=== PATIENT | female | born 2000 | race Caucasian/White ===

== ENCOUNTER 2020-02-09 23:16 | Emergency (ER) | payer OTHER ==
[2020-02-09 23:26] VITALS: BP 123/83; PULSE 83; RESP 20; TEMP 98.8
[2020-02-09] MEDS ORDERED: predniSONE 50 MG TAB PO STA (23:47)
[2020-02-09] MEDS ORDERED: FAMOTIDINE 20 MG TAB PO STA (23:47)
[2020-02-09] MEDS ORDERED: diphenhydrAMINE 50 MG CAP PO STA (23:48)
--- NOTE | 2020-02-09 23:50 | ED ---
Allergic Reaction HPI - General Chief complaint: Allergic Reaction Stated complaint: Rash Time Seen by Provider: 02/09/20 23:30 Source: patient Mode of arrival: ambulatory Limitations: no limitations - History of Present Illness Initial Comments: 19-year-old female patient presents to the emergency department today for evaluation of rash to her upper body and swelling around her eyes. Patient is also reporting postnasal drainage with mild sore throat. Denies any difficulty with breathing or wheezing. Denies lip or tongue swelling. Denies exposure to new substances. States she did have a similar reaction approximately one year ago she feels it may be a seasonal ALLERGY. She did have a tooth pulled today, states that she is not having difficulty with that area. Denies any facial swelling. Denies taking any medication for her symptoms. Patient denies any recent rash, fever, chills, cough, chest pain, abdominal pain, nausea, vomiting, diarrhea, constipation, back pain, numbness, tingling, dizziness, weakness, hematuria, dysuria, urinary urgency, urinary frequency, headache, visual changes, or any other complaints. - Related Data Previous Rx's Medication Instructions Recorded Famotidine [Pepcid] 20 mg PO DAILY #3 tablet 02/09/20 predniSONE 50 mg PO DAILY #3 tab 02/09/20 Allergies Allergy/AdvReac Type Severity Reaction Status Date / Time sulfamethoxazole Allergy Rash/Hives Verified 02/09/20 23:26 [From Bactrim] trimethoprim [From Bactrim] Allergy Rash/Hives Verified 02/09/20 23:26 Review of Systems ROS Statement: Those systems with pertinent positive or pertinent negative responses have been documented in the HPI. ROS Other: All systems not noted in ROS Statement are negative. Past Medical History Past Medical History: No Reported History History of Any Multi-Drug Resistant Organisms: None Reported Past Surgical History: Tonsillectomy Past Psychological History: Anxiety, Depression Smoking Status: Never smoker Past Alcohol Use History: None Reported Past Drug Use History: Marijuana General Exam Limitations: no limitations General appearance: alert, in no apparent distress, other (This is a well-d eveloped, well-nourished adult female patient in no acute distress. Vital signs upon presentation are temperature 98.8F, pulse 83, respirations 20, blood pressure 123/83, pulse ox 98% on room air.) Eye exam: Present: PERRL, EOMI, periorbital swelling (Mild periorbital swelling noted, no overlying erythema). Absent: normal appearance, scleral icterus, conjunctival injection ENT exam: Present: normal exam, normal oropharynx, mucous membranes moist, TM's normal bilaterally Respiratory exam: Present: normal lung sounds bilaterally. Absent: respiratory distress, wheezes, rales, rhonchi, stridor Cardiovascular Exam: Present: regular rate, normal rhythm, normal heart sounds. Absent: systolic murmur, diastolic murmur, rubs, gallop, clicks Neurological exam: Present: alert, oriented X3, CN II-XII intact Psychiatric exam: Present: normal affect, normal mood Skin exam: Present: warm, dry, intact, normal color, rash (Urticaria noted over the neck and arms.) Course Vital Signs 02/09/20 23:23 Temperature 98.8 F Pulse Rate 83 Respiratory 20 Rate Blood Pressure 123/83 O2 Sat by Pulse 98 Oximetry Medical Decision Making - Medical Decision Making 19-year-old female patient presented to the emergency department today for evaluation of rash and eye swelling. Physical examination did reveal mild david orbital edema with no overlying erythema. No conjunctival injection or eye drainage. There is mild urticarial rash noted over the posterior neck and the arms. This is consistent with ALLERGIC reaction. Patient will be treated with prednisone and Pepcid here. She is given Benadryl to take home as she is driving herself. She is instructed to continue Benadryl every 6 hours as needed. She is given prescription for prednisone and Pepcid. She is instructed to follow-up with her primary care physician for recheck in 1-2 days. She verbalizes understanding and agrees with this plan. Disposition Clinical Impression: Rash, Periorbital edema Disposition: HOME SELF-CARE Condition: Good Instructions (If sedation given, give patient instructions): General Allergic Reaction (ED) Additional Instructions: Take medications as directed. Take Benadryl every 6 hours as needed. Follow-up to primary care physician for recheck in 1-2 days. Prescriptions: Famotidine [Pepcid] 20 mg PO DAILY #3 tablet predniSONE 50 mg PO DAILY #3 tab Is patient prescribed a controlled substance at d/c from ED?: No Referrals: Maren Araujo MD [Primary Care Provider] - 1-2 days Time of Disposition: 23:50
== END 2020-02-10 00:30 | disposition home or self-care (01) ==
LOC: EC 23:16
DX: R21 Rash and other nonspecific skin eruption (principal); R60.0 Localized edema; L50.0 Allergic urticaria; Z88.1 Allergy status to other antibiotic agents; Z88.2 Allergy status to sulfonamides
CPT/HCPCS: 99283; J7512

== ENCOUNTER 2020-02-23 11:42 | Emergency (ER) | payer OTHER ==
[2020-02-23 11:47] VITALS: BP 121/81; PULSE 79; RESP 18; TEMP 98.1
--- NOTE | 2020-02-23 12:37 | ED ---
Female Urogenital HPI - General Chief complaint: Urogenital Stated complaint: Vaginal pain Time Seen by Provider: 02/23/20 11:48 Source: patient Mode of arrival: ambulatory Limitations: no limitations - History of Present Illness Initial comments: 19-year-old feel presented for chief complaint of vaginal pain she states that she has been at the external vagina at times it is sharp. Patient denies any dysuria urgency frequency. She was stated that she has had some thick discharge she was concerned of a yeast infection and presents emergency department for evaluation. Denies . States she is sexually active. Denies abdominal or back pain. Remaining ROS (-). Last Menstrual Period: 02/13/20 - Related Data Home Medications Medication Instructions Recorded Confirmed Amoxicillin 500 mg PO Q8H 02/23/20 02/23/20 Orsythia 1 tab PO DAILY 02/23/20 02/23/20 Previous Rx's Medication Instructions Recorded Fluconazole [Diflucan] 150 mg PO DAILY 3 Days #2 tab 02/23/20 Allergies Allergy/AdvReac Type Severity Reaction Status Date / Time nitrofurantoin Allergy Rash/Hives Verified 02/23/20 12:17 [From Macrobid] sulfamethoxazole Allergy Rash/Hives Verified 02/23/20 12:17 [From Bactrim] trimethoprim [From Bactrim] Allergy Rash/Hives Verified 02/23/20 12:17 Review of Systems ROS Statement: Those systems with pertinent positive or pertinent negative responses have been documented in the HPI. ROS Other: All systems not noted in ROS Statement are negative. Past Medical History Past Medical History: No Reported History History of Any Multi-Drug Resistant Organisms: None Reported Past Surgical History: Tonsillectomy Past Psychological History: Anxiety, Depression Smoking Status: Never smoker Past Alcohol Use History: None Reported Past Drug Use History: Marijuana General Exam - General Exam Comments Initial Comments: General: The patient is awake and alert, in no distress, and does not appear acutely ill. Eye: Pupils are equal, round and reactive to light, extra-ocular movements are intact. No nystagmus. There is normal conjunctiva bilaterally. No signs of icterus. Cardiovascular: There is a regular rate and rhythm. No murmur, rub or gallop is appreciated. Respiratory: Lungs are clear to auscultation, respirations are non-labored, breath sounds are equal. No wheezes, stridor, rales, or rhonchi. Gastrointestinal: Soft, non-distended, non-tender abdomen without masses or organomegaly noted. There is no rebound or guarding present. : no external lesions. some redness of cervix (discussed with patient) thick chunky white discharge no odor. no profuse discharge no adnexal or cervical motion tenderness Musculoskeletal: Normal ROM, no tenderness. Strength 5/5. Sensation intact. Pulses equal bilaterally 2+. Neurological: A&O x 3. CN II-XII intact grossly, There are no obvious motor or sensory deficits. Coordination appears grossly intact. Speech is normal. Skin: Skin is warm and dry and no rashes or lesions are noted. Psychiatric: Cooperative, appropriate mood & affect, normal judgment. Limitations: no limitations Course Vital Signs 02/23/20 02/23/20 11:43 13:34 Temperature 98.1 F 98.1 F Pulse Rate 79 79 Respiratory 18 18 Rate Blood Pressure 121/81 121/81 O2 Sat by Pulse 100 100 Oximetry Medical Decision Making - Medical Decision Making 19 yo female presenting today for cc of vaginal irritation/pain. Findings on exam concerning for gabriel infection. Patient afebrile. NO dysuria. Pending urine culture. Patient will be discharged on diflucan with PCP and OBGYN f/u. Discussed redness of cervix and recommended PAP smear. - Lab Data Lab Results 02/23/20 02/23/20 02/23/20 Range/Units 12:30 12:30 12:30 Urine Color Yellow Urine Appearance Clear (Clear) Urine pH 5.5 (5.0-8.0) Ur Specific [place] 1.022 (1.001-1.035) Urine Protein Negative (Negative) Urine Glucose (UA) Negative (Negative) Urine Ketones Negative (Negative) Urine Blood Negative (Negative) Urine Nitrite Negative (Negative) Urine Bilirubin Negative (Negative) Urine Urobilinogen <2.0 (<2.0) mg/dL Ur Leukocyte Esterase Moderate H (Negative) Urine RBC 1 (0-5) /hpf Urine WBC 3 (0-5) /hpf Ur Squamous Epith Cells 3 (0-4) /hpf Urine Bacteria Rare H (None) /hpf Hyaline Casts 3 H (0-2) /lpf Urine Mucus Many H (None) /hpf Urine HCG, Qual Not Detected (Not Detectd) Trichomonas Ag (Rapid) Negative (Negative) Disposition Clinical Impression: Vaginitis Disposition: HOME SELF-CARE Condition: Good Instructions (If sedation given, give patient instructions): Yeast Infection (ED) Additional Instructions: Please use medication as discussed. Please follow-up with OBGYN in next 1-2 weeks. Please return to emergency room if the symptoms increase or worsen or for any other concerns. Prescriptions: Fluconazole [Diflucan] 150 mg PO DAILY 3 Days #2 tab Is patient prescribed a controlled substance at d/c from ED?: No Referrals: Maren Araujo MD [Primary Care Provider] - 1-2 days Time of Disposition: 13:12
[2020-02-23 12:57] LABS: Appearance,Urine Clear (Clear); Bacteria,Urine Rare /hpf; Bilirubin,Urine Negative (Negative); Blood,Urine Negative (Negative); Color,Urine Yellow; Glucose,Urine (UA) Negative (Negative); Hyaline Casts,Urine 3 /lpf (0-2); Ketones,Urine Negative (Negative); Leukocyte Esterase,Urine Moderate (Negative); Mucus,Urine Many /hpf; Nitrite,Urine Negative (Negative); PH, Urine 5.5 (5.0-8.0); Protein,Urine Negative (Negative); RBC,Urine 1 /hpf (0-5); Specific Gravity,Urine 1.022 (1.001-1.035); Squamous Epithelial Cell,Urine 3 /hpf (0-4); Urobilinogen,Urine <2.0 mg/dL (<2.0); WBC,Urine 3 /hpf (0-5)
[2020-02-25 09:41] LABS: C. trachomatis,PCR Negative (Neg,Equiv); Chlamydia trachomatis Source Vagina; N. gonorrhoeae,PCR Negative (Neg,Equiv); Neisseria Source Vagina
== END 2020-02-23 13:35 | disposition home or self-care (01) ==
LOC: EC 11:42
DX: N76.0 Acute vaginitis (principal); Z88.2 Allergy status to sulfonamides; Z88.8 Allergy status to other drugs, medicaments and biological substances
CPT/HCPCS: 81001; 81025; 87070; 87491; 87591; 87808; 99283

== ENCOUNTER 2022-11-07 03:27 | Emergency (ER) | payer OTHER ==
[2022-11-07 03:35] VITALS: BP 122/73; PULSE 99; RESP 18; TEMP 98.1
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
== END 2022-11-07 04:02 | disposition home or self-care (01) ==
LOC: EC 03:27
DX: F10.129 Alcohol abuse with intoxication, unspecified (principal); F41.9 Anxiety disorder, unspecified; F32.A Depression, unspecified; F12.90 Cannabis use, unspecified, uncomplicated; F17.200 Nicotine dependence, unspecified, uncomplicated; Z79.899 Other long term (current) drug therapy; Z88.1 Allergy status to other antibiotic agents; Z88.2 Allergy status to sulfonamides; V89.2XXA Person injured in unspecified motor-vehicle accident, traffic, initial encounter
CPT/HCPCS: 99282

== ENCOUNTER 2022-11-24 23:02 | Inpatient (IN) | payer MEDICAID, OTHER ==
--- NOTE | 2022-11-25 01:11 | ED ---
General Adult HPI - General Chief complaint: Psychiatric Symptoms Stated complaint: Mental Health Time Seen by Provider: 11/24/22 23:05 Source: patient Mode of arrival: ambulatory Limitations: no limitations - History of Present Illness Initial comments: This is a 22-year-old female with a past medical history including anxiety and depression presents emergency department via police for suicidal ideation as well as "needing to talk to somebody." The patient was tearful on evaluation and was handcuffed as the patient was reportedly aggressive towards police. The patient stated that she wanted somebody to talk to for "help" but did not want "to be put on 3 W." The patient stated that when the police did arrive after she called her to obtain some sort of help at home, the patient became agitated and stated that she was suicidal now that the police were there. The patient stated multiple times however to myself that she did not have any thoughts of suicide and that she only stated it because the police were at the house and stressed out her grandmother. The patient denied any homicidal ideation as well as denying any auditory or visual hallucination. The patient was cooperative in the emergency department and was able to rest comfortably in bed. The patient denied any acute trauma or pain. - Related Data Home Medications Medication Instructions Recorded Confirmed Amoxicillin 500 mg PO Q8H 02/23/20 02/23/20 Orsythia 1 tab PO DAILY 02/23/20 02/23/20 Previous Rx's Medication Instructions Recorded Fluconazole [Diflucan] 150 mg PO DAILY 3 Days #2 tab 02/23/20 Allergies Allergy/AdvReac Type Severity Reaction Status Date / Time nitrofurantoin Allergy Rash/Hives Verified 11/24/22 23:17 [From Macrobid] sulfamethoxazole Allergy Rash/Hives Verified 11/24/22 23:17 [From Bactrim] trimethoprim [From Bactrim] Allergy Rash/Hives Verified 11/24/22 23:17 Review of Systems ROS Statement: Those systems with pertinent positive or pertinent negative responses have been documented in the HPI. ROS Other: All systems not noted in ROS Statement are negative. Past Medical History Past Medical History: No Reported History History of Any Multi-Drug Resistant Organisms: None Reported Past Surgical History: Tonsillectomy Past Psychological History: Anxiety, Depression Smoking Status: Current some day smoker Past Alcohol Use History: None Reported, Occasional Past Drug Use History: Marijuana General Exam Limitations: no limitations General appearance: alert, in no apparent distress Head exam: Present: atraumatic, normocephalic, normal inspection Eye exam: Present: normal appearance, PERRL Pupils: Present: normal accommodation ENT exam: Present: normal exam, normal oropharynx, mucous membranes moist Neck exam: Present: normal inspection, full ROM Respiratory exam: Present: normal lung sounds bilaterally Cardiovascular Exam: Present: regular rate, normal rhythm, normal heart sounds GI/Abdominal exam: Present: soft, normal bowel sounds Extremities exam: Present: normal inspection, full ROM Back exam: Present: normal inspection, full ROM Neurological exam: Present: alert, oriented X3, CN II-XII intact Psychiatric exam: Present: normal affect, normal mood, agitated (Intermittently agitated) Skin exam: Present: warm, dry Course Vital Signs 11/24/22 23:10 Temperature 98.6 F Pulse Rate 100 Respiratory 18 Rate Blood Pressure 143/93 O2 Sat by Pulse 99 Oximetry Medical Decision Making - Medical Decision Making Was pt. sent in by a medical professional or institution ([facility], DAY CARE HOME PROVIDER, urgent care, hospital, or correction...) When possible be specific @ -Yes, sent in via police Did you speak to anyone other than the patient for history (EMS, parent, family, police, friend...)? What history was obtained from this source @ -No Did you review nursing and triage notes (agree or disagree)? Why? @ -I reviewed and agree with nursing and triage notes Were old charts reviewed (outside hosp., previous admission, EMS record, old EKG, old radiological studies, urgent care reports/EKG's, correction records)? Report findings @ -No old charts were reviewed Differential Diagnosis (chest pain, altered mental status, abdominal pain women, abdominal pain men, vaginal bleeding, weakness, fever, dyspnea, syncope, headache, dizziness, GI bleed, back pain, seizure, CVA, palpatations, mental health)? @ -Acute psychosis, suicidal ideation, anxiety EKG interpreted by me (3pts min.). @ -None X-rays interpreted by me (1pt min.). @ -None done CT interpreted by me (1pt min.). @ -None done U/S interpreted by me (1pt. min.). @ -None done What testing was considered but not performed or refused? (CT, X-rays, U/S, labs)? Why? @ -None What meds were considered but not given or refused? Why? @ -None Did you discuss the management of the patient with other professionals (professionals i.e. , PA, DAY CARE HOME PROVIDER, lab, RT, psych nurse, social work lecturer, adjunct psychology instructor, teacher, corporate ethics officer, child support case officer)? Give summary @ -Yes, the patient was discussed with the EPS. Was smoking cessation discussed for >3mins.? @ -No Was critical care preformed (if so, how long)? @ -No Were there social determinants of health that impacted care today? How? (Homelessness, low income, unemployed, alcoholism, drug addiction, transportation, low edu. Level, literacy, decrease access to med. care, residential, rehab)? @ -No Was there de-escalation of care discussed even if they declined (Discuss DNR or withdrawal of care, Hospice)? DNR status @ -No What co-morbidities impacted this encounter? (DM, HTN, Smoking, COPD, CAD, Cancer, CVA, ARF, Chemo, Hep., AIDS, mental health diagnosis, sleep apnea, morbid obesity)? @ -Anxiety, depression Was patient admitted / discharged? Hospital course, mention meds given and route, prescriptions, significant lab abnormalities, going to OR and other pertinent info. @ -The patient was seen and evaluated emergency department. Physical exam, the patient was cooperative and answer questions appropriate. Vital signs were stable. The patient stated that she only stated that she was suicidal because the police showed up to her house after she was trying to attempt to get "help." The patient stated that she wanted help for "the bug that splinting in my brain." The patient however denied any suicidal thoughts as well as any homicidal ideation. The patient was petitioned by police and after the breath alcohol level was 0, the patient was medically cleared. The patient was seen and evaluated by EPS. EPS did recommend inpatient admission. I did fill out a clinical certificate for the patient and the patient was told this plan and was agreeable. The patient was admitted in stable condition. Undiagnosed new problem with uncertain prognosis? @ -No Drug Therapy requiring intensive monitoring for toxicity (Heparin, Nitro, Insulin, Cardizem)? @ -No Were any procedures done? @ -No Diagnosis/symptom? @ -Suicidal ideation, psychosis Acute, or Chronic, or Acute on Chronic? @ -Acute on chronic Uncomplicated (without systemic symptoms) or Complicated (systemic symptoms)? @ -Complicated Side effects of treatment? @ -No Exacerbation, Progression, or Severe Exacerbation? @ -No Poses a threat to life or bodily function? How? (Chest pain, USA, HI, pneumonia, PE, COPD, DKA, ARF, appy, cholecystitis, CVA, Diverticulitis, Homicidal, Suicidal, threat to staff... and all critical care pts) @ -Yes, suicidal ideation can lead to suicide plan and possible attempt leading to possible . Disposition Clinical Impression: Psychosis, Suicidal ideation Disposition: ADMITTED IP TO THIS [facility] Condition: Stable Referrals: Maren Araujo MD [Primary Care Provider] - 1-2 days Time of Disposition: 02:00 Decision to Admit Reason: Admit from EC Decision Date: 11/25/22 Decision Time: 02:00
[2022-11-25] MEDS ORDERED: hydrOXYzine HCL 50 MG/ML 1 ML VIAL IM PRN (03:03)
[2022-11-25] MEDS ORDERED: ACETAMINOPHEN TAB 325 MG TAB PO PRN (03:03)
[2022-11-25] MEDS ORDERED: IBUPROFEN 600 MG TAB PO PRN (03:03)
[2022-11-25] MEDS ORDERED: MAGNESIUM HYDROXIDE 2,400 MG/10 ML CUP PO PRN (03:03)
[2022-11-25] MEDS ORDERED: MAG HYDROX/AL HYDROX/SIMETH 30 ML CUP PO PRN (03:03)
[2022-11-25] MEDS ORDERED: OLANZapine 10 MG VIAL IM PRN (03:03)
[2022-11-25] MEDS ORDERED: OLANZapine 5 MG TAB PO PRN (03:10)
--- NOTE | 2022-11-25 05:20 | P.MDCNMH ---
History of Present Illness H&P Date: 11/25/22 Chief Complaint: medical eval 22 year old female with depression and anxiety patient is currently sleeping and medicated , unable to provide any medical history , which was obtained from reviewing medical records and speaking with [facility] staff Marlo patient was brought in to the hospital due to suicidal threats, she was home , when she started acting strange , and police was notified, and then she started voicing suicidal thoughts in front of the police , who brought her here for evaluation. she denied any hallucinations. or homicidal ideation. she was reportedly cooperative in the ED , but very tearful and depressed. no reported medical concerns at this time Past Medical History Past Medical History: No Reported History History of Any Multi-Drug Resistant Organisms: None Reported Past Surgical History: Tonsillectomy Past Psychological History: Anxiety, Depression Smoking Status: Current some day smoker Past Alcohol Use History: None Reported, Occasional Past Drug Use History: Marijuana Medications and Allergies Home Medications Medication Instructions Recorded Confirmed Type Amoxicillin 500 mg PO Q8H 02/23/20 02/23/20 History Fluconazole [Diflucan] 150 mg PO DAILY 3 Days #2 tab 02/23/20 Rx Orsythia 1 tab PO DAILY 02/23/20 02/23/20 History Allergies Allergy/AdvReac Type Severity Reaction Status Date / Time nitrofurantoin Allergy Rash/Hives Verified 11/24/22 23:17 [From Macrobid] sulfamethoxazole Allergy Rash/Hives Verified 11/24/22 23:17 [From Bactrim] trimethoprim [From Bactrim] Allergy Rash/Hives Verified 11/24/22 23:17 Physical Exam Vitals: Vital Signs Temp Pulse Pulse Resp BP BP Pulse Ox 11/25/22 03:40 98.0 F 92 18 127/73 99 11/24/22 23:10 98.6 F 100 18 143/93 99 Intake and Output 11/24/22 11/24/22 11/25/22 14:59 22:59 06:59 Other: Weight 43.9 kg patient is medicated and sleeping , and was not available for evaluation at this time Cranial Nerve Examination - Cranial Nerves Cranial Nerve I- Olfactory: Intact (CN exam not performed , but marked intact due to system error that the chart will not close if its not marked with intact or impaired) Cranial Nerve II- Optic: Intact Cranial Nerve III- Oculomotor: Intact Cranial Nerve IV- Trochlear: Intact Cranial Nerve V- Trigeminal: Intact Cranial Nerve - Abducens: Intact Cranial Nerve VII- Facial: Intact Cranial Nerve VIII- Auditory: Intact Cranial Nerve IX- Glossopharyngeal: Intact Cranial Nerve X- Vagus: Intact Cranial Nerve XI- Accessory: Intact Cranial Nerve XII- Hypoglossal: Intact Assessment and Plan Assessment: depression and suicidal ideation management per psych no reported medical concerns thank you for this consultation , please reach out to [facility] if any medical concerns labs not available for review at this time COVID test negative
[2022-11-25 05:48] LABS: Appearance,Urine Clear (Clear); Bilirubin,Urine Negative (Negative); Blood,Urine Negative (Negative); Color,Urine Light Yellow; Glucose,Urine (UA) Negative (Negative); Ketones,Urine Negative (Negative); Leukocyte Esterase,Urine Negative (Negative); Nitrite,Urine Negative (Negative); PH, Urine 6.5 (5.0-8.0); Protein,Urine Negative (Negative); Urobilinogen,Urine <2.0 mg/dL (<2.0)
[2022-11-25] MEDS ORDERED: NICOTINE 14MG/24HR PATCH TRANSDERM SCH (09:00)
[2022-11-25] MEDS ORDERED: SERTRALINE 50 MG TAB PO STA (11:11)
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
[2022-11-25 15:30] VITALS: BMI 18.8
[2022-11-25 18:38] LABS: Urine Alcohol Negative (Negative); Urine Barbiturate Negative (Negative); Urine Cocaine Negative (Negative); Urine Methadone Negative (Negative); Urine Opiates Negative (Negative); Urine Phencyclidine Negative (Negative)
[2022-11-25] MEDS: hydrOXYzine pamoate 25 MG CAP PO PRN (21:00)
[2022-11-26 06:47] VITALS: BP 129/95; PULSE 111; RESP 14; TEMP 97.2
[2022-11-26 06:54] LABS: Basophils % (A) 1 %; Eosinophils # (A) 0.1 k/uL (0-0.7); Eosinophils % (A) 1 %; HGB 13.5 gm/dL (11.4-16.0); Lymphocytes # (A) 3.2 k/uL (1.0-4.8); Lymphocytes % (A) 44 %; MCH 28.9 pg (25.0-35.0); MCHC 32.1 g/dL (31.0-37.0); Mean Platelet Volume 7.4; Monocytes # (A) 0.5 k/uL (0-1.0); Monocytes % (A) 7 %; Neutrophils # (A) 3.3 k/uL (1.3-7.7); Neutrophils % (A) 45 %; Platelet Count 267 k/uL (150-450); RBC 4.66 m/uL (3.80-5.40); RDW 12.7 % (11.5-15.5); WBC 7.3 k/uL (3.8-10.6)
[2022-11-26 07:03] LABS: ALT 17 U/L (4-34); AST 25 U/L (14-36); African American GFR (CKD) >90 (>60 ml/min/1.73 sqM); Albumin 4.7 g/dL (3.5-5.0); Alkaline Phosphatase 67 U/L (38-126); Anion Gap 9 mmol/L; Bilirubin,Unconjugated 0.5 mg/dL (0.0-1.1); Blood Urea Nitrogen 9 mg/dL (7-17); Calcium 9.7 mg/dL (8.4-10.2); Carbon Dioxide 27 mmol/L (22-30); Chloride 103 mmol/L (98-107); Glucose 93 mg/dL (74-99); Non-African American GFR(CKD) >90 (>60 ml/min/1.73 sqM); Potassium 3.9 mmol/L (3.5-5.1); Sodium 139 mmol/L (137-145); Total Bilirubin 0.5 mg/dL (0.2-1.3); Total Protein 7.4 g/dL (6.3-8.2)
[2022-11-26] MEDS ORDERED: SERTRALINE 50 MG TAB PO SCH (09:00)
[2022-11-26] MEDS: hydrOXYzine pamoate 25 MG CAP PO PRN (12:24)
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
[2022-11-26 15:40] LABS: Chol/HDL Ratio 2.77 Ratio; LDL Cholesterol,Calculated 105.2 mg/dL (0.0-131.0); VLDL Calculation 11.18 mg/dL (5.00-40.00)
== END 2022-11-26 13:39 | disposition home or self-care (01) | DRG 755 ==
LOC: EC 23:02 → 3MHU 11-25 03:04
PROVIDERS: ADMIT Psychiatry & Neurology Psychiatry; ATTEND Psychiatry & Neurology Psychiatry
DX: F43.23 Adjustment disorder with mixed anxiety and depressed mood (principal); R45.851 Suicidal ideations; F43.10 Post-traumatic stress disorder, unspecified; F12.10 Cannabis abuse, uncomplicated; Z20.822 Contact with and (suspected) exposure to COVID-19; Z79.899 Other long term (current) drug therapy; Z73.3 Stress, not elsewhere classified; Z88.1 Allergy status to other antibiotic agents; Z88.2 Allergy status to sulfonamides; Z78.1 Physical restraint status; Z87.828 Personal history of other (healed) physical injury and trauma
CPT/HCPCS: 80053; 80061; 80306; 81003; 81025; 82075; 82248; 83036; 84443; 85025; 87635; 99285

== ENCOUNTER → 2024-05-24 | Outpatient (CLI) | payer OTHER ==
--- NOTE | 2024-07-12 05:06 | EM ---
EVENT MONITOR STUDY: A 7-day event monitor. Available rhythm strips were reviewed. There is 1 strip at 49 beats per minute, sinus mechanism, 1 of sinus tachycardia at almost 170 beats per minute. Other strips revealed pretty much sinus rhythm and sinus tachycardia. No evidence of any significant bradycardia. No ventricular ectopy or any supraventricular ectopy. FINAL IMPRESSION: Available rhythm strips suggest a sinus rhythm and sinus tachycardia. No symptoms were reported. MMODL / IJN: [id number] /
== END | disposition home or self-care (01) ==
LOC: RADECHMAIN 07:02
PROVIDERS: ATTEND Psychiatry & Neurology Neurology
DX: G47.33 Obstructive sleep apnea (adult) (pediatric) (principal); R00.0 Tachycardia, unspecified
CPT/HCPCS: 93270

== ENCOUNTER → 2024-08-16 | Outpatient (CLI) | payer OTHER ==
[2024-08-16 17:03] LABS: % Iron Saturation 19.18 (12.00-45.00); Iron 70 UG/DL (50-170); Rheumatoid Factor, Qnt <15 IU/mL (0-15); T4, Free (Free Thyroxine) 0.98 ng/dL (0.80-1.80); Total Iron Binding Capacity 365 UG/DL (228-460)
== END | disposition home or self-care (01) ==
LOC: LABWHC1 09:13
PROVIDERS: ATTEND Psychiatry & Neurology Neurology
DX: G47.33 Obstructive sleep apnea (adult) (pediatric) (principal)
CPT/HCPCS: 36415; 82140; 82607; 82746; 83540; 83550; 84439; 84443; 86038; 86431